=== PATIENT | male | born 1960 | race Caucasian/White ===

== ENCOUNTER → 2017-03-23 | Outpatient (CLI) | payer MEDICARE ==
[2017-03-23 10:40] LABS: HEMOGLOBIN 15.4 g/dL (14.1-18.0); LYMPH # 1.6 K/mm3 (0.7-4.5); LYMPH % 29.3 % (10-50)
[2017-03-23 10:42] LABS: URINE BILIRUBIN - DIPSTICK NEGATIVE (NEG); URINE BLOOD NEGATIVE (NEG)
[2017-03-23 11:05] LABS: URINE SQUAMOUS CELLS OCC #/hpf (OCC)
[2017-03-23 12:46] LABS: BUN 13 mg/dL (7-18); GFR (ESTIMATED) 87 ML/MIN (>60)
--- NOTE | 2017-03-23 14:59 | RADIOLOGY REPORT PS360 ---
CHEST(2 VIEWS-NOT PORTABLE) HISTORY: HTN, MORBID OBESITY, CHRONIC SHOULDE AND BACK PAIN ORDERING PHYSICIAN: NEIL PAUL PATIENT AGE: 56 years COMPARISON: None available FINDINGS: The cardiomediastinal silhouette and pulmonary vascularity are within normal limits. Minimal density noted in the left lung base and to 6 interspace anteriorly. Lungs are otherwise clear.. No acute bony abnormalities. IMPRESSION: Nonspecific opacity left lung base which could be due to summation artifact, nipple shadow, fibrotic change, or developing pulmonary parenchymal pathology. Consider short-term follow-up to confirm stability.
== END ==
LOC: LAB 10:13
PROVIDERS: Family Medicine
DX: I10 Essential (primary) hypertension (principal); E66.01 Morbid (severe) obesity due to excess calories; M54.9 Dorsalgia, unspecified; M25.519 Pain in unspecified shoulder

== ENCOUNTER 2017-06-10 20:28 | Emergency (ER) | payer OTHER, MEDICARE ==
[~2017-06-10] VITALS: Ht 170.2 cm; Wt 144.2 kg
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
--- OUTSIDE RECORDS SUMMARY | 2017-06-10 21:24 | External Medical Summary Rpt ---
Author Author THERESE Address Unknown Phone [email or web address] Purpose Continuity of Care Document - through 2016 Problems Code Diagnosis DOS Provider Status I10 ESSENTIAL (PRIMARY) HYPERTENSIO N
--- OUTSIDE RECORDS SUMMARY | 2017-06-10 21:24 | External Medical Summary Rpt ---
Author Author THERESE Address Unknown Phone [email or web address] Purpose Continuity of Care Document - through 2016 Problems Code Diagnosis DOS Provider Status I10 ESSENTIAL (PRIMARY) HYPERTENSIO N
--- OUTSIDE RECORDS SUMMARY | 2017-06-10 21:24 | External Medical Summary Rpt ---
Author Author [employer] Organization [employer] Address Unknown Phone Unavailable Purpose Continuity of Care Document - through 2016
--- OUTSIDE RECORDS SUMMARY | 2017-06-10 21:25 | External Medical Summary Rpt ---
Demographics Preferred Language Lithuanian Marital Status Unknown Worship Affiliation Unknown Race Unknown Ethnic Group Unknown Author Author THERESE Address Unknown Phone Immunization No patient found.
--- OUTSIDE RECORDS SUMMARY | 2017-06-10 21:25 | External Medical Summary Rpt ---
Demographics Preferred Language German Marital Status Unknown [facility] Affiliation Unknown Race Unknown Ethnic Group Unknown Author Author THERESE Address Unknown Phone Immunization No patient found.
[2017-06-10 22:01] LABS: HEMOGLOBIN 15.7 g/dL (14.1-18.0); LYMPH # 1.4 K/mm3 (0.7-4.5)
[2017-06-10] MEDS ORDERED: NORCO 325 MG-51 TAB PO (23:47)
[2017-06-11 00:29] VITALS: BP 180/90
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
== END 2017-06-11 00:29 | disposition home or self-care (01) ==
LOC: ER 20:28
PROVIDERS: Emergency Medicine
PROC: 2W3DX1Z Immobilization of Left Lower Arm using Splint (ICD-10-PCS; principal; 2017-06-10)
DX: S62.102A Fracture of unspecified carpal bone, left wrist, initial encounter for closed fracture (principal); S16.1XXA Strain of muscle, fascia and tendon at neck level, initial encounter; S89.92XA Unspecified injury of left lower leg, initial encounter; V42.5XXA Car driver injured in collision with two- or three-wheeled motor vehicle in traffic accident, initial encounter; Y92.414 Local residential or business street as the place of occurrence of the external cause

== ENCOUNTER 2017-06-22 06:01 | Day surgery (SDC) | payer OTHER, MEDICARE ==
[~2017-06-22] VITALS: Ht 170.2 cm; Wt 144.2 kg
[~2017-06-22 06:01] MED LIST: NORCO 325 MG-51 TAB PO
--- NOTE | 2017-06-22 09:24 | RADIOLOGY REPORT PS360 ---
FOREARM-LT CLINICAL INDICATION: ORIF LEFT DISTAL RADIUS ORDERING PHYSICIAN: Héctor Mendez MD PATIENT AGE: 57 years COMPARISON: 8 FINDINGS: 2 images submitted with the C-arm show a bone plate present anteriorly with good alignment of the distal radial fracture. Ulnar styloid avulsion also noted. IMPRESSION: Status post ORIF with good alignment of the distal radial fracture
--- NOTE | 2017-06-22 09:49 | Anesthesia Record ---
Anesthesia Record Part I Total IV fluids: 700 EBL (ml): 20 Urine Output: 0 B/P: 139/84 % SaO2: 97 Pulse: 90 Resps: 12 Temp: 97.8 Patient is: Awake, Mask O2, Stable Stable to PACU at: 0927 at 0949
--- NOTE | 2017-06-22 09:51 | Anesthesia Record ---
Anesthesia Record Part II Discharge time: 956 Destination: Same day surgery PACU nurse assessment review? Yes Patient is: Awake, Stable Anesthesia complications? No at 0908
--- NOTE | 2017-06-22 10:01 | RADIOLOGY REPORT PS360 ---
WRIST-3 VIEWS-LT HISTORY: Follow-up ORIF/fracture S/P ORIF LEFT DISTAL RADIUS ORDERING PHYSICIAN: Héctor Mendez MD PATIENT AGE: 57 years COMPARISON: 06/10/2017 FINDINGS: Status post ORIF distal radial fracture. An anterior bone plate has been placed stabilizing the comminuted fracture of the distal radius with good alignment of the fracture fragments. No significant displacement. Ulnar styloid fracture once again noted. IMPRESSION: Status post ORIF distal radial fracture with good alignment
[2017-06-22 12:36] VITALS: BP 148/70
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
== END 2017-06-22 11:33 | disposition home or self-care (01) ==
LOC: SDC 06:01
PROVIDERS: Orthopaedic Surgery
PROC: 0HDLXZZ Extraction of Left Lower Leg Skin, External Approach (ICD-10-PCS; 2017-06-22)
PROC: 0PSJ04Z Reposition Left Radius with Internal Fixation Device, Open Approach (ICD-10-PCS; principal; 2017-06-22 07:30)
DX: S52.572A Other intraarticular fracture of lower end of left radius, initial encounter for closed fracture (principal); V49.60XA Unspecified car occupant injured in collision with unspecified motor vehicles in traffic accident, initial encounter; T24.132A Burn of first degree of left lower leg, initial encounter
CPT/HCPCS: C1713; C1769; C1776; J0131; J2405

== ENCOUNTER → 2017-08-03 | Outpatient (CLI) | payer OTHER, MEDICARE ==
--- NOTE | 2017-08-03 13:44 | RADIOLOGY REPORT PS360 ---
WRIST-3 VIEWS-LT COMPARISON: Left wrist 07/06/2017 HISTORY: Follow-up fracture TECHNIQUE: AP lateral and oblique views with cast removed FINDINGS: The orthopedic plate is again noted fixated by multiple threaded screws reducing the distal radial fracture in near anatomic alignment. The ulnar styloid chip fracture is stable and unchanged from the previous study. The carpal bones appear normal except for mild diffuse osteoporosis. IMPRESSION: Stable ORIF distal radial fracture and stable ulnar styloid chip fracture
== END ==
LOC: RAD 12:41
DX: S52.512D Displaced fracture of left radial styloid process, subsequent encounter for closed fracture with routine healing (principal)